=== PATIENT | male | born 1995 | race Caucasian/White ===

== ENCOUNTER 2020-01-02 13:36 | Emergency (ER) | payer SELFPAY ==
[2020-01-02 13:44] VITALS: BP 148/97
--- NOTE | 2020-01-02 16:49 | ED ---
Abdominal Pain/Male - HPI Summary HPI Summary: 24-year-old male presents to the emergency department today complaining of right sided lower abdominal and groin pain after lifting heavy timbers at work this afternoon at approximately 12 PM. Patient states at rest he has no pain however with laughing or sitting up his pain is reproducible and is a 10 out of 10 aching pain. Patient denies testicular pain at rest or with palpation of the testicles. Patient states he has never had a hernia in the past. Patient otherwise feels well and denies fever, chest pain, pain with urination, nausea, vomiting, diarrhea, rash. Surgical history and family history is noncontributory. - History of Current Complaint Chief Complaint: EDGeneral Stated Complaint: POSS HERNIA/R GROIN PAIN PER PT Time Seen by Provider: 01/02/20 16:35 Hx Obtained From: Patient Onset/Duration: Sudden Onset, Lasting Hours Timing: Intermittent, Lasting Seconds Severity Initially: Severe Severity Currently: Mild Pain Intensity: 4 Pain Scale Used: 0-10 Numeric Location: Discrete At: RLQ, Groin Radiates: Yes Radiates to: Inguinal Character: Cramping Aggravating Factor(s): Movement Alleviating Factor(s): Position Associated Signs And Symptoms: Negative: Fever, Cough, Blood in Stool, Urinary Symptoms, Nausea, Vomiting, Diarrhea, Penile Discharge - Allergies/Home Medications Allergies/Adverse Reactions: Allergies Allergy/AdvReac Type Severity Reaction Status Date / Time ENVIRONMENTAL/SEASONAL Allergy ASTHMA Uncoded 01/02/20 13:43 HAYFEVER LIKE SYMPTOMS Home Medications: Home Medications Zyrtec 1 tab PO BEDTIME 10/25/12 [History Confirmed 11/01/12] PMH/Surg Hx/FS Hx/Imm Hx Endocrine/Hematology History: Denies: Hx Anticoagulant Therapy, Hx Diabetes, Hx Thyroid Disease Cardiovascular History: Denies: Hx Hypertension, Hx Pacemaker/ICD Respiratory History: Reports: Hx Asthma - MILD Denies: Hx Chronic Obstructive Pulmonary Disease (COPD) History: Denies: Hx Renal Disease Sensory History: Reports: Hx Contacts or Glasses - CONTACTS, WILL WEAR GLASSES DAY OF SURGERY Denies: Hx Hearing Aid Opthamlomology History: Reports: Hx Contacts or Glasses - CONTACTS, WILL WEAR GLASSES DAY OF SURGERY Neurological History: Denies: Hx Dementia, Hx Seizures Comment Only: Other Neuro Impairments/Disorders - MILD DELAY IN SPEAKING, NERVOUS UNSURE WHEN IN CERTAIN SITUATION, MOTHER HE Psychiatric History: Denies: Hx Panic Disorder, Hx Substance Abuse - Surgical History Surgery Procedure, Year, and Place: PILONIDAL CYST 2013 - Immunization History Date of Tetanus Vaccine: UP TO DATE Date of Influenza Vaccine: NONE Infectious Disease History: No Infectious Disease History: Denies: Hx Hepatitis, Hx Human Immunodeficiency Virus (HIV), Traveled Outside the [place] in Last 30 Days - Social History Alcohol Use: None Substance Use Type: Reports: None Smoking Status (MU): Never Smoked Tobacco Review of Systems Constitutional: Negative Eyes: Negative ENT: Negative Cardiovascular: Negative Respiratory: Negative Positive: Abdominal Pain. Negative: Vomiting, Diarrhea, Nausea Genitourinary: Negative Musculoskeletal: Negative Skin: Negative Neurological/Mental Status: Negative Psychological: Normal All Other Systems Reviewed And Are Negative: Yes Physical Exam - Summary Physical Exam Summary: Patient is in no acute distress. Inspection of the abdomen reveals no ecchymosis or masses. Palpation of the abdomen reveals no tenderness, guarding , rigidity. Auscultation reveals normal active bowel sounds. Patient complains of increased pain in the right inguinal region. Testicular exam was done with diversity specialist in the emergency department. Inspection of the external genitalia shows no lesions. No tenderness to palpation of the testicle. Cremasteric reflexes intact bilaterally. No hernia is appreciated with inguinal exam. Patient complains of pain with increased abdominal pressure in the lower right abdomen. Physical exam is consistent with direct hernia on the right. Self reducing. No evidence of incarceration or strangulation. Triage Information Reviewed: Yes Vital Signs On Initial Exam: Initial Vitals Temp Pulse Resp BP Pulse Ox 99.0 F 102 18 148/97 98 01/02/20 13:39 01/02/20 13:39 01/02/20 13:39 01/02/20 13:39 01/02/20 13:39 Vital Signs Reviewed: Yes Appearance: Positive: Well-Appearing, No Pain Distress, Well-Nourished Skin: Positive: Warm, Skin Color Reflects Adequate Perfusion Eyes: Positive: EOMI, GIANNI ENT: Positive: Hearing grossly normal Respiratory/Lung Sounds: Positive: Clear to Auscultation, Breath Sounds Present Cardiovascular: Positive: RRR, S1, S2 Abdomen Description: Positive: Nontender, Soft Bowel Sounds: Positive: Present Male Genital Exam: Positive: Inguinal Tenderness. Negative: Epididymal Tenderness, Lesions, Scrotum Tenderness (R), Scrotum Tenderness (L), Testicular Tenderness (R), Testicular Tenderness (L) Musculoskeletal: Positive: Strength/ROM Intact Neurological: Positive: Sensory/Motor Intact, Alert, Oriented to Person Place, Time, Normal Gait, Facial Symmetry, Speech Normal Psychiatric: Positive: Normal, Affect/Mood Appropriate AVPU Assessment: Alert Procedures - Sedation Patient Received Moderate/Deep Sedation with Procedure: No Diagnostics - Vital Signs Vital Signs Temp Pulse Resp BP Pulse Ox 01/02/20 13:39 99.0 F 102 18 148/97 98 - Laboratory Lab Statement: Any lab studies that have been ordered have been reviewed, and results considered in the medical decision making process. Abdominal Pain Male Course/Dx - Course Course Of Treatment: Patient was evaluated in the emergency department today for right lower abdominal and groin pain. Vitals noted. Patient afebrile. Physical exam was consistent with self reducing direct inguinal hernia on the right. No evidence of strangulation or incarceration with physical exam or history. Patient was given referral to general surgery as surgical intervention is ultimately likely required. Patient discharged with outpatient follow-up. - Diagnoses Differential Diagnosis/HQI/PQRI: Appendicitis, Epididymitis, Ischemic Bowel, Testicular Torsion, Other - hernia Provider Diagnoses: Inguinal hernia of right side without obstruction or gangrene Discharge ED - Sign-Out/Discharge Documenting (check all that apply): Patient Departure - Discharge Plan Condition: Stable Disposition: HOME Patient Education Materials: Inguinal Hernia (ED) Forms: *Work Release Referrals: Shannon Castro MD [Primary Care Provider] - Lele Robles MD [Medical Doctor] - As Soon As Possible Additional Instructions: You were diagnosed with a hernia in the emergency department today. Please take ibuprofen as needed for pain 600 mg every 6 hours. I've given you a work note to allow you to rest until you're seen by the surgeon. Please follow-up with Dr. Robles Gen. surgery as soon as possible for further evaluation and management. Please return to the emergency department immediately if you develop any new or worsening symptoms such as increased pain, pain which will not dissipate with rest. - Billing Disposition and Condition Condition: STABLE Disposition: Home - Attestation Statements Provider Attestation: I was available for consultation for this patient. I did not evaluate the patient or participate in any medical decision making or disposition decisions unless I am specifically named in the chart as having consulted on the patient. If I have consulted on the patient, please see my own ED note on the patient encounter. Angel Canas MD
== END 2020-01-02 17:37 | disposition home or self-care (01) ==
LOC: ED 13:36
DX: K40.90 Unilateral inguinal hernia, without obstruction or gangrene, not specified as recurrent (principal); J45.909 Unspecified asthma, uncomplicated; Z79.899 Other long term (current) drug therapy
CPT/HCPCS: 99282